=== PATIENT | female | born 1980 | race Native Hawaiian/Other Pacific Islander ===

== ENCOUNTER 2019-12-02 10:21 | Outpatient (CLI) | payer BC | END 2019-12-02 21:37 | disposition home or self-care (01) | LOC: RAD 10:21 | DX: S69.91XA Unspecified injury of right wrist, hand and finger(s), initial encounter (principal) ==

== ENCOUNTER 2020-11-09 09:36 | Outpatient (CLI) | payer BC | END 2020-11-09 22:45 | disposition home or self-care (01) | LOC: CT 09:36 | PROVIDERS: ATTEND Nurse Practitioner Family | DX: N28.1 Cyst of kidney, acquired (principal) | CPT/HCPCS: Q9963 ==